=== PATIENT | female | born 2000 | race African-American/Black ===

== ENCOUNTER 2021-05-04 12:21 | Emergency (ER) | payer MEDICAID ==
[~2021-05-04] VITALS: Ht 167.6 cm; Wt 61.0 kg
[2021-05-04 12:23] VITALS: BP 134/74
== END 2021-05-04 15:38 | disposition home or self-care (01) ==
LOC: ER 12:36 → CANBEDREQ 15:08 → ER 15:38
DX: O02.1 Missed abortion (principal); Z3A.01 Less than 8 weeks gestation of pregnancy
CPT/HCPCS: 99281; Z7610

== ENCOUNTER 2021-05-10 19:16 | Emergency (ER) | payer MEDICAID ==
[~2021-05-10] VITALS: Ht 167.6 cm; Wt 61.0 kg
[2021-05-10 19:48] VITALS: BP 128/88
== END 2021-05-10 20:09 | disposition left against medical advice (07) ==
LOC: ER 19:16
DX: Z53.21 Procedure and treatment not carried out due to patient leaving prior to being seen by health care provider (principal); N89.8 Other specified noninflammatory disorders of vagina

== ENCOUNTER 2022-08-03 10:00 | Emergency (ER) | payer MEDICAID ==
[~2022-08-03] VITALS: Ht 167.6 cm; Wt 62.0 kg
[2022-08-03 10:13] VITALS: BP 112/80
[2022-08-03] MEDS ORDERED: ACETAMINOPHEN 500MG TABLET PO ONE (10:45)
== END 2022-08-03 13:57 | disposition home or self-care (01) ==
LOC: ER 10:00
DX: O30.002 Twin pregnancy, unspecified number of placenta and unspecified number of amniotic sacs, second trimester (principal); O26.892 Other specified pregnancy related conditions, second trimester; Z3A.17 17 weeks gestation of pregnancy
CPT/HCPCS: 76805; 76810; 99284